=== PATIENT | male | born 1975 | race Caucasian/White ===

== ENCOUNTER 2017-08-21 19:09 | Observation (INO) | payer OTHER ==
[2017-08-21] MEDS ORDERED: Dexamethasone 4 MG/ML 5 ML MDV IV ONE ×2 (20:05→20:34)
[2017-08-21] MEDS ORDERED: HYDROmorphone 0.5 MG/0.5 ML SYRINGE IVPUSH ONE ×2 (20:05→22:50)
--- NOTE | 2017-08-21 20:11 | EDM.PDOC ---
ED HPI GENERAL MEDICAL PROBLEM - General Chief Complaint: Back Pain or Injury Stated Complaint: [facility] Time Seen by Provider: 08/21/17 20:04 Source of Information: Reports: Patient History Limitations: Reports: No Limitations - History of Present Illness INITIAL COMMENTS - FREE TEXT/NARRATIVE: 42-year-old male presents to the ED by ambulance from [facility] employed in the [employer]. He is a class a truck driver. He states that 2 days ago he went to step out of his truck and missed the handle. This caused him to fall directly onto the ground primarily onto his right side. There was a severe twisting injury en route to the ground. He states he did get up right away and did have a minor sore back for the next day or so but this morning he was unable to get out of bed due to severe pain in his right lower back. Muscle spasms are so intense that he can't even roll over. Ambulance was sumoned to bring him to the hospital as he could not get up to void or to feed himself. He essentially has been in bed all day. Not been able to get up to get food or to the bathroom. He did work yesterday driving truck. Since he's had some occasional mild back pains which are usually cured by chiropractor manipulation but nothing permanent. At present his pain is in his right flank area L1-L2 and T12 area. No radiculopathy down his leg. He denies hitting his head or losing consciousness. Denies any other injuries. He did receive Versed 2 mg en route to [facility] as well as fentanyl 50 g IV by the paramedics from injury ambulance Onset: Sudden Onset Date: 08/19/17 (Fell on the morning of August 19.) Duration: Day(s): (2 days ago), Getting Worse Location: Reports: Back (Severe right-sided low back pain.) Quality: Reports: Ache, Burning, Other Severity: Severe (Severe muscle spasms with any movement of his body right lower back) Improves with: Reports: None Worsens with: Reports: Movement Context: Reports: Trauma ([facility] misstepped getting out of his truck and then missed a grab bar. This resulted in a fall to the ground. Did not knock the wind out of him. ). Denies: Activity, Exercise, Lifting, Sick Contact Associated Symptoms: Denies: No Other Symptoms, Confusion, Chest Pain, Cough, cough w sputum, Diaphoresis, Fever/Chills, Headaches, Loss of Appetite, Malaise , Nausea/Vomiting, Rash, Seizure, Shortness of Breath, Syncope Treatments [employer]LE [employer]ER: Reports: Other (see below) Other Treatments S[employer]LE TRUER: versed and fentanyl Back Pain Score (Numeric/FACES): 10 - Related Data Allergies Allergy/AdvReac Type Severity Reaction Status Date / Time No Known Allergies Allergy Verified 08/21/17 19:13 Home Meds: Home Meds . [No Known Home Meds] 08/21/17 [History] Past Medical History - Past Health History Medical/Surgical History: Denies Medical/Surgical History Social & Family History - Tobacco Use Smoking Status *Q: Never Smoker - Caffeine Use Caffeine Use: Reports: Coffee - Recreational Drug Use Recreational Drug Use: No - Living Situation & Occupation Occupation: Employed ED ROS GENERAL - Review of Systems Review Of Systems: See Below Constitutional: Denies: Fever, Chills, Malaise, Weakness, Fatigue, Diaphoresis, Decreased Appetite, Weight Loss HEENT: Reports: No Symptoms Respiratory: Reports: No Symptoms Cardiovascular: Reports: No Symptoms Endocrine: Reports: No Symptoms GI/Abdominal: Reports: No Symptoms : Reports: No Symptoms Musculoskeletal: Reports: Back Pain, Muscle Pain, Muscle Stiffness, Other ( Severe muscle spasms upon any attempt to move on the right). Denies: Hand Pain (Severe right low back pain to the point that he is completely incapacitated.), Leg Pain, Foot Pain, Joint Pain, Joint Swelling Skin: Reports: No Symptoms ( mid lower back) Neurological: Reports: No Symptoms, Other Psychiatric: Reports: No Symptoms (No radiculopathy) Hematologic/Lymphatic: Reports: No Symptoms Immunologic: Reports: No Symptoms ED EXAM,LOWER BACK PAIN/INJURY - Physical Exam Exam: See Below Exam Limited By: No Limitations General Appearance: WD/WN, No Apparent Distress Respiratory/Chest: No Respiratory Distress, Lungs Clear, Normal Breath Sounds, No Accessory Muscle Use Cardiovascular: Normal Peripheral Pulses, Regular Rate, Rhythm, No Edema, No Gallop, No Murmur GI/Abdominal: Normal Bowel Sounds, Soft, Non-Tender, No Organomegaly, No Abnormal Bruit, No Mass, Pelvis Stable Back Exam: Other (Unable to examine as the patient is lying prone. He can't rollover even to the left side to allow appropriate examination of his back.) Extremities: Normal Inspection, Normal Range of Motion, Non-Tender, No Pedal Edema Neurological: Alert, Normal Mood/Affect, Normal Dorsiflexion, CN II-XII Intact, No Motor/Sensory Deficits, Oriented x 3. No: Normal Gait Skin Exam: Warm, Dry, Intact, Normal Color, No Rash Course - Vital Signs Last Recorded V/S: Last Vital Signs Temp 37.2 C 08/21/17 19:10 Pulse 85 08/21/17 19:10 Resp 16 08/21/17 19:10 BP 134/85 08/21/17 19:10 Pulse Ox 100 08/21/17 19:10 - Orders/Labs/Meds Orders: Active Orders 24 hr Category Date Time Status Lumbar Spine wo Cont [CT] Stat Exams 08/21/17 20:07 Taken Dextrose 5%-0.9% NaCl [Dextrose 5%-Normal Saline] 1,000 Med 08/21/17 20:15 Active ml IV ASDIRECTED Ketorolac [Toradol] Med 08/21/17 20:15 Active 30 mg IVPUSH ONETIME Medication Orders Dextrose/Sodium Chloride (Dextrose 5%-Normal Saline) 1,000 mls @ 500 mls/hr IV ASDIRECTED KAL Last Admin: 08/21/17 20:35 Dose: 500 mls/hr Ketorolac Tromethamine (Toradol) 30 mg IVPUSH ONETIME KAL Last Admin: 08/21/17 20:22 Dose: 30 mg Labs: Laboratory Tests 08/21/17 08/21/17 Range/Units 20:30 20:30 WBC 9.22 H (4.23-9.07) K/mm3 RBC 5.29 (4.63-6.08) M/mm3 Hgb 16.4 (13.7-17.5) gm/L Hct 48.2 (40.1-51.0) % MCV 91.1 (79.0-92.2) fl MCH 31.0 (25.7-32.2) pg MCHC 34.0 (32.2-35.5) g/dl RDW Std Deviation 44.1 H (35.1-43.9) fL Plt Count 176 (163-337) K/mm3 MPV 10.4 (9.4-12.3) fl Neutrophils % (Manual) 77 H (40-60) % Band Neutrophils % 0 (0-10) % Lymphocytes % (Manual) 21 (20-40) % Atypical Lymphs % 0 % Monocytes % (Manual) 1 L (2-10) % Eosinophils % (Manual) 1 (0.8-7.0) % Basophils % (Manual) 0 L (0.2-1.2) Platelet Estimate Adequate Plt Morphology Comment Normal RBC Morph Comment Normal Sodium 140 (136-145) mEq/L Potassium 4.2 (3.5-5.1) mEq/L Chloride 107 (98-107) mEq/L Carbon Dioxide 26 (21-32) mEq/L Anion Gap 11.2 (5-15) BUN 16 (7-18) mg/dL Creatinine 1.2 (0.7-1.3) mg/dL Est Cr Clr Drug Dosing 89.81 mL/min Estimated GFR (MDRD) > 60 (>60) mL/min BUN/Creatinine Ratio 13.3 L (14-18) Glucose 100 (74-106) mg/dL Calcium 8.4 L (8.5-10.1) mg/dL Total Bilirubin 0.6 (0.2-1.0) mg/dL AST 30 (15-37) U/L ALT 36 (16-63) U/L Alkaline Phosphatase 64 (46-116) U/L Creatine Kinase 1301 H (39-308) U/L C-Reactive Protein 0.6 (<1.0) mg/dL Total Protein 7.6 (6.4-8.2) g/dl Albumin 3.7 (3.4-5.0) g/dl Globulin 3.9 gm/dL Albumin/Globulin Ratio 1.0 (1-2) Meds: Medications Generic Name Dose Route Start Last Admin Trade Name Freq PRN Reason Stop Dose Admin Dextrose/Sodium Chloride 1,000 mls @ 500 mls/hr 08/21/17 20:15 08/21/17 20:35 Dextrose 5%-Normal Saline IV 500 mls/hr ASDIRECTED KAL Administration Ketorolac Tromethamine 30 mg 08/21/17 20:15 08/21/17 20:22 Toradol IVPUSH 30 mg ONETIME KAL Administration Discontinued Medications Generic Name Dose Route Start Last Admin Trade Name Freq PRN Reason Stop Dose Admin Dexamethasone 10 mg 08/21/17 20:05 Dexamethasone IV 08/21/17 20:06 ONETIME ONE Dexamethasone Confirm 08/21/17 20:17 Dexamethasone Administered 08/21/17 20:18 Dose 10 mg .ROUTE .STK-MED ONE Dexamethasone 10 mg 08/21/17 20:34 Dexamethasone IV 08/21/17 20:35 ONETIME ONE Dexamethasone 10 mg 08/21/17 20:35 08/21/17 20:37 Dexamethasone IVPUSH 08/21/17 20:36 10 mg ONETIME STA Administration Diazepam 5 mg 08/21/17 20:06 08/21/17 20:30 Valium IVPUSH 08/21/17 20:07 5 mg ONETIME ONE Administration Hydromorphone HCl 1 mg 08/21/17 20:05 08/21/17 20:23 Dilaudid IVPUSH 08/21/17 20:06 1 mg ONETIME ONE Administration Hydromorphone HCl 1 mg 08/21/17 22:50 08/21/17 22:54 Dilaudid IVPUSH 08/21/17 22:51 1 mg ONETIME ONE Administration - Radiology Interpretation Free Text/Narrative:: 42-year-old male presents the ED by ambulance from [facility] he is employed. He presents with severe right lower back pain which is described as severe muscle spasms upon any movement. The muscle spasms are incapacitating. She went to the point that he states came in rollover even with help to have his back examined. He has an atrial today and he hasn't been able to get up to the bathroom either. States he fell out of his truck 2 days ago missed a step getting out of the truck. He missed the grab bar and fell to the ground landing hard he believes on his right side. 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 This morning however he could get out of bed. Found his symptoms somewhat exaggerated and have some concerns about potential narcotic abuser. Toward drug- seeking behavior. However upon checking the drug database is in [facility] in [place] there is no record of him having any medications. Plan he will receive IV D5 normal saline at 500 mils per hour. Given Dilaudid 1 mg IV with Toradol 30 mg IV and Valium 55 mg IV for muscle spasm relief. We'll have CT of his lumbar spine carried out. - Re-Assessments/Exams Free Text/Narrative Re-Assessment/Exam: 08/21/17 21:09 CT of the lumbar spine has been completed. Examination of L1-2, L2-3, and L3-4, are within normal limits. Examination of L4-5 demonstrates a diffuse annular bulge effacing the ventral subarachnoid space which in combination with mild thickened ligamentum flavum is resulting in a mild central spinal stenosis. Examination of L5-S1 demonstrates a prominent intervertebral osteophyte demonstrated on the right posterior lateral aspect of the disc space asymmetrically effacing the ventral subarachnoid space and indenting and on and posteriorly displacing the right S1 nerve root as it exits from the thecal sac narrowing of the inferior aspect of the right neural foramina demonstrated as well. A curvilinear lucency demonstrated between the osteophyte and the vertebral body may indicate a posttraumatic fracture as the osteophyte appears to be detached from the parent bone. Normal alignment of the L-spine is appreciated. 08/21/17 22:00 Labs reveal a total white count of 9.22. Differential 77% neutrophils no bands reported. Hemoglobin is 16.4. Hematocrit is 40.2 indicating some degree of hemoconcentration. Platelets are normal at 176,000. Sodium was 140 with a potassium of 4.2. Portable 07 with a bicarbonate 26. And a gap is 11.2. BUN is 16 with a creatinine of 1.2. GFR is greater than 60. Glucose is 100. Calcium is 8.4. Liver function is normal. Creatine kinase is elevated at 1301 . I have spoken to Dr. Rhoades about admission to the hospital. She was checking out the bed mobility. Patient essentially is incapacitated at this time due to his back pain. It up he can't get himself any food and he can't get to the bathroom. He is hungry we'll try and see if we can get him a sandwich and some Gatorade. He will have to strain set up a bit of course to eat. 08/21/17 22:51 Current pain is 5-6 out of 10. Will repeat Dilaudid 1 mg IV for pain relief. 08/21/17 23:48 apparently there is a bed available for him and apparently nurses have arranged for him to be transferred to the floor shortly. Departure - Departure Time of Disposition: 23:49 Disposition: Refer to Observation Condition: Fair Clinical Impression: Degenerative joint disease (DJD) of lumbar spine Acute lumbar back pain Qualifiers: Back pain laterality: right Sciatica presence: without sciatica Qualified Code( s): M54.5 - Low back pain - Discharge Information - My Orders Last 24 Hours: My Active Orders 08/21/17 20:07 Lumbar Spine wo Cont [CT] Stat 08/21/17 20:15 Dextrose 5%-0.9% NaCl [Dextrose 5%-Normal Saline] 1,000 ml IV ASDIRECTED Ketorolac [Toradol] 30 mg IVPUSH ONETIME - Assessment/Plan Last 24 Hours: My Active Orders 08/21/17 20:07 Lumbar Spine wo Cont [CT] Stat 08/21/17 20:15 Dextrose 5%-0.9% NaCl [Dextrose 5%-Normal Saline] 1,000 ml IV ASDIRECTED Ketorolac [Toradol] 30 mg IVPUSH ONETIME
[2017-08-21] MEDS ORDERED: Dextrose 5%-0.9% NaCl 1,000 ML IV SCH (20:15)
[2017-08-21] MEDS ORDERED: Ketorolac 30 MG/ML SDV IVPUSH SCH (20:15)
[2017-08-21] MEDS ORDERED: Dexamethasone 10 MG/ML SDV ONE (20:17)
[2017-08-21] MEDS ORDERED: Dexamethasone 10 MG/ML SDV IVPUSH STA (20:35)
[2017-08-22] MEDS: HYDROmorphone 0.5 MG/0.5 ML SYRINGE IVPUSH PRN ×2 (01:04→09:05)
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
[2017-08-22] MEDS ORDERED: Cyclobenzaprine 10 MG Tab PO PRN (09:21)
[2017-08-22] MEDS: Ketorolac 30 MG/ML SDV IVPUSH SCH ×2 (10:18→15:40)
[2017-08-22] MEDS: methylPREDNISolone Sodium Succinate 125 MG/2 ML SDV IVPUSH SCH ×2 (10:18→15:40)
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
[2017-08-22] MEDS ORDERED: Gabapentin 300 MG Cap PO SCH ×2 (13:45→21:00)
[2017-08-22] MEDS ORDERED: Lidocaine 5% 700 MG Patch TOP SCH (14:00)
[2017-08-22] MEDS ORDERED: Ibuprofen 800 MG Tab PO PRN (18:33)
[2017-08-22] MEDS ORDERED: Acetaminophen/HYDROcodone 325-5 MG Tab PO PRN (18:43)
--- NOTE | 2017-08-22 19:27 | PCM.DCSUM1 ---
Discharge Summary - Hospital Course Free Text/Narrative:: 42 year old male with severe muscle spasms and a documented protruding disc L5- S1 on MRI. This displaces and compresses the right S1 nerve root as well as S2. The patient had improvement of his back discomfort. And has been discharged to home with anticipated follow up with a PCP, and possibly ortho. However he expressed a desire to see ortho in his home [facility]. If he decides to follow up in [facility], he will be available for an appointment on Saturday, August 26, 2017. Diagnosis Severe muscle spasms Intractible pain after falling from truck L5-S1 protruding/herniated disc with involvement of right S1/S2 nerve HPI Initial Comments: 42 year old male complains of back pain, s/p recent fall from his truck. Denied LOC, he has had worsening right sided back pain. He has given a least 2 separate accounts of the incidence of the fall. Nevertheless at this time he is experiencing sharp pain with movement. The patient received several doses of Dextamethasone, and also Valium without significant relief. He has been admitted to obs for pain management. A CT of the lumbar spine was within normal limits except L4-L5 documents a diffuse annular bulge with effacement of the ventral subarachnoid space. Thus mild central spinal stenosis. See complete report, there also may be a post traumatic fracture. 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 Status: Acute Current Visit: Yes (2) Acute lumbar back pain SNOMED Code(s): 974342959 ICD Code: M54.5 - LOW BACK PAIN Status: Acute Current Visit: Yes Qualifiers: Back pain laterality: right Sciatica presence: without sciatica Qualified Code(s): M54.5 - Low back pain (3) Degenerative joint disease (DJD) of lumbar spine Status: Acute Current Visit: Yes - Patient Summary/Data Consults: Consultations 08/22/17 01:12 Consult to Physical Therapy [PT Evaluation and Treatment] [CONS] Routine - Patient Instructions Diet: Usual Diet as Tolerated Activity: No Strenuous Activities, Rest and Relax Today Driving: Do Not Drive Showering/Bathing: May Shower Notify Provider of: Fever, Increased Pain, Nausea and/or Vomiting - Discharge Plan Prescriptions/Med Rec: Acetaminophen/HYDROcodone [[place] 325-5 MG] 1 tab PO Q12H PRN #7 tablet PRN Reason: Pain (Moderate 4-6) Cyclobenzaprine [Flexeril] 10 mg PO TID PRN #21 tablet PRN Reason: muscle spasms Gabapentin [Neurontin] 300 mg PO TID PRN #30 capsule PRN Reason: Pain Ibuprofen [Motrin] 800 mg PO Q6H PRN #30 tablet PRN Reason: Pain (Severe 7-10) Lidocaine 5% [Lidoderm 5%] 700 mg TOP DAILY@1400 #14 patch Home Medications: Home Meds Acetaminophen/HYDROcodone [[place] 325-5 MG] 1 tab PO Q12H PRN #7 tablet 08/22/17 [Rx] Anastrozole [Arimidex] 1 mg PO WEEKLY 08/22/17 [History] Cyclobenzaprine [Flexeril] 10 mg PO TID PRN #21 tablet 08/22/17 [Rx] Gabapentin [Neurontin] 300 mg PO TID PRN #30 capsule 08/22/17 [Rx] Ibuprofen [Motrin] 800 mg PO Q6H PRN #30 tablet 08/22/17 [Rx] Lidocaine 5% [Lidoderm 5%] 700 mg TOP DAILY@1400 #14 patch 08/22/17 [Rx] Testosterone Cypionate 100 mg IM ASDIRECTED 08/22/17 [History] Forms: ED Department Discharge Referrals: PCP,Not In Area [Primary Care Provider] - - Discharge Summary/Plan Comment DC Time >30 min.: No Discharge Summary/Plan Comment: Impression: Acute back pain, lumbar region s/p fall from truck Severe muscle spasms Elevated CPK post trauma Hypotesteronemia Plan: IVF Pain mgt MRI of lumbar spine Ortho eval as needed. Obs with telemetry DVT/GI prophylaxis - General Info Date of Service: 08/22/17 Functional Status: Reports: Pain Controlled, Tolerating Diet, Ambulating, Urinating - Review of Systems General: Reports: No Symptoms HEENT: Reports: No Symptoms Pulmonary: Reports: No Symptoms Cardiovascular: Reports: No Symptoms Gastrointestinal: Reports: No Symptoms Genitourinary: Reports: No Symptoms Musculoskeletal: Reports: Back Pain Skin: Reports: No Symptoms Neurological: Reports: No Symptoms Psychiatric: Reports: No Symptoms - Patient Data Vitals - Most Recent: Last Vital Signs Temp 36.8 C 08/22/17 14:07 Pulse 65 08/22/17 14:07 Resp 16 08/22/17 13:26 BP 132/79 08/22/17 14:07 Pulse Ox 97 08/22/17 14:07 Weight - Most Recent: 97.522 kg I&O - Last 24 hours: Intake & Output 08/22/17 08/22/17 08/22/17 06:59 14:59 22:59 Intake Total 900 240 200 Output Total 600 800 Balance 300 240 -600 Lab Results - Last 24 hrs: Laboratory Results - last 24 hr 08/21/17 08/21/17 08/22/17 Range/Units 20:30 20:30 01:20 WBC 9.22 H (4.23-9.07) K/mm3 RBC 5.29 (4.63-6.08) M/mm3 Hgb 16.4 (13.7-17.5) gm/L Hct 48.2 (40.1-51.0) % MCV 91.1 (79.0-92.2) fl MCH 31.0 (25.7-32.2) pg MCHC 34.0 (32.2-35.5) g/dl RDW Std Deviation 44.1 H (35.1-43.9) fL Plt Count 176 (163-337) K/mm3 MPV 10.4 (9.4-12.3) fl Neutrophils % (Manual) 77 H (40-60) % Band Neutrophils % 0 (0-10) % Lymphocytes % (Manual) 21 (20-40) % Atypical Lymphs % 0 % Monocytes % (Manual) 1 L (2-10) % Eosinophils % (Manual) 1 (0.8-7.0) % Basophils % (Manual) 0 L (0.2-1.2) Platelet Estimate Adequate Plt Morphology Comment Normal RBC Morph Comment Normal Sodium 140 (136-145) mEq/L Potassium 4.2 (3.5-5.1) mEq/L Chloride 107 (98-107) mEq/L Carbon Dioxide 26 (21-32) mEq/L Anion Gap 11.2 (5-15) BUN 16 (7-18) mg/dL Creatinine 1.2 (0.7-1.3) mg/dL Est Cr Clr Drug Dosing 89.81 mL/min Estimated GFR (MDRD) > 60 (>60) mL/min BUN/Creatinine Ratio 13.3 L (14-18) Glucose 100 (74-106) mg/dL Calcium 8.4 L (8.5-10.1) mg/dL Total Bilirubin 0.6 (0.2-1.0) mg/dL AST 30 (15-37) U/L ALT 36 (16-63) U/L Alkaline Phosphatase 64 (46-116) U/L Creatine Kinase 1301 H (39-308) U/L C-Reactive Protein 0.6 (<1.0) mg/dL Total Protein 7.6 (6.4-8.2) g/dl Albumin 3.7 (3.4-5.0) g/dl Globulin 3.9 gm/dL Albumin/Globulin Ratio 1.0 (1-2) TSH 3rd Generation (0.358-3.74) uIU/mL Urine Opiates Screen (NEGATIVE) Ur Buprenorphine Scrn (NEGATIVE) Ur Oxycodone Screen (NEGATIVE) Urine Methadone Screen (NEGATIVE) Ur Propoxyphene Screen (NEGATIVE) Ur Barbiturates Screen (NEGATIVE) Ur Tricyclics Screen (NEGATIVE) Ur Phencyclidine Scrn (NEGATIVE) Ur Amphetamine Screen (NEGATIVE) U Methamphetamines Scrn (NEGATIVE) U Benzodiazepines Scrn (NEGATIVE) U Cocaine Metab Screen (NEGATIVE) U Marijuana (THC) Screen (NEGATIVE) MRSA (PCR) Negative 08/22/17 08/22/17 Range/Units 10:28 14:23 WBC (4.23-9.07) K/mm3 RBC (4.63-6.08) M/mm3 Hgb (13.7-17.5) gm/L Hct (40.1-51.0) % MCV (79.0-92.2) fl MCH (25.7-32.2) pg MCHC (32.2-35.5) g/dl RDW Std Deviation (35.1-43.9) fL Plt Count (163-337) K/mm3 MPV (9.4-12.3) fl Neutrophils % (Manual) (40-60) % Band Neutrophils % (0-10) % Lymphocytes % (Manual) (20-40) % Atypical Lymphs % % Monocytes % (Manual) (2-10) % Eosinophils % (Manual) (0.8-7.0) % Basophils % (Manual) (0.2-1.2) Platelet Estimate Plt Morphology Comment RBC Morph Comment Sodium (136-145) mEq/L Potassium (3.5-5.1) mEq/L Chloride (98-107) mEq/L Carbon Dioxide (21-32) mEq/L Anion Gap (5-15) BUN (7-18) mg/dL Creatinine (0.7-1.3) mg/dL Est Cr Clr Drug Dosing mL/min Estimated GFR (MDRD) (>60) mL/min BUN/Creatinine Ratio (14-18) Glucose (74-106) mg/dL Calcium (8.5-10.1) mg/dL Total Bilirubin (0.2-1.0) mg/dL AST (15-37) U/L ALT (16-63) U/L Alkaline Phosphatase (46-116) U/L Creatine Kinase (39-308) U/L C-Reactive Protein (<1.0) mg/dL Total Protein (6.4-8.2) g/dl Albumin (3.4-5.0) g/dl Globulin gm/dL Albumin/Globulin Ratio (1-2) TSH 3rd Generation 0.620 (0.358-3.74) uIU/mL Urine Opiates Screen Presumptive positive H (NEGATIVE) Ur Buprenorphine Scrn Negative (NEGATIVE) Ur Oxycodone Screen Negative (NEGATIVE) Urine Methadone Screen Negative (NEGATIVE) Ur Propoxyphene Screen Negative (NEGATIVE) Ur Barbiturates Screen Negative (NEGATIVE) Ur Tricyclics Screen Negative (NEGATIVE) Ur Phencyclidine Scrn Negative (NEGATIVE) Ur Amphetamine Screen Negative (NEGATIVE) U Methamphetamines Scrn Negative (NEGATIVE) U Benzodiazepines Scrn Presumptive positive H (NEGATIVE) U Cocaine Metab Screen Negative (NEGATIVE) U Marijuana (THC) Screen Negative (NEGATIVE) MRSA (PCR) Med Orders - Current: Current Medications Hydrocodone Bitart/Acetaminophen ([place] 325-5 Mg) 1 tab PO Q12H PRN PRN Reason: Pain (moderate 4-6) Cyclobenzaprine HCl (Flexeril) 10 mg PO TID PRN PRN Reason: muscle spasms Last Admin: 08/22/17 09:27 Dose: 10 mg Gabapentin (Neurontin) 300 mg PO TID [facility] Ibuprofen (Motrin) 800 mg PO Q6H PRN PRN Reason: Pain (severe 7-10) Ketorolac Tromethamine (Toradol) 30 mg IVPUSH Q6H [facility] Stop: 08/24/17 04:01 Last Admin: 08/22/17 15:40 Dose: 30 mg Lidocaine (Lidoderm 5%) 700 mg TOP DAILY@1400 [facility] Last Admin: 08/22/17 14:59 Dose: 700 mg Methylprednisolone Sodium Succinate (Solu-Medrol) 125 mg IVPUSH Q6H [facility] Last Admin: 08/22/17 15:40 Dose: 125 mg Miscellaneous Information (Remove Patch) 0 ea TRDERM DAILY@0200 [facility] Discontinued Medications Dexamethasone (Dexamethasone) 10 mg IV ONETIME ONE Stop: 08/21/17 20:06 Last Admin: 08/22/17 09:10 Dose: Not Given Dexamethasone (Dexamethasone) Confirm Administered Dose 10 mg .ROUTE .STK-MED ONE Stop: 08/21/17 20:18 Last Admin: 08/22/17 09:11 Dose: Not Given Dexamethasone (Dexamethasone) 10 mg IV ONETIME ONE Stop: 08/21/17 20:35 Last Admin: 08/22/17 09:11 Dose: Not Given Dexamethasone (Dexamethasone) 10 mg IVPUSH ONETIME STA Stop: 08/21/17 20:36 Last Admin: 08/21/17 20:37 Dose: 10 mg Diazepam (Valium) 5 mg IVPUSH ONETIME ONE Stop: 08/21/17 20:07 Last Admin: 08/21/17 20:30 Dose: 5 mg Diazepam (Valium) 5 mg IVPUSH Q8H PRN PRN Reason: Muscle Spasm Last Admin: 08/22/17 03:57 Dose: 5 mg Gabapentin (Neurontin) 300 mg PO DAILY [facility] Last Admin: 08/22/17 14:55 Dose: 300 mg Hydromorphone HCl (Dilaudid) 1 mg IVPUSH ONETIME ONE Stop: 08/21/17 20:06 Last Admin: 08/21/17 20:23 Dose: 1 mg Hydromorphone HCl (Dilaudid) 1 mg IVPUSH ONETIME ONE Stop: 08/21/17 22:51 Last Admin: 08/21/17 22:54 Dose: 1 mg Hydromorphone HCl (Dilaudid) 1 mg IVPUSH Q2HR PRN PRN Reason: Pain (severe 7-10) Last Admin: 08/22/17 09:05 Dose: 1 mg Dextrose/Sodium Chloride (Dextrose 5%-Normal Saline) 1,000 mls @ 500 mls/hr IV ASDIRECTED [facility] Last Admin: 08/21/17 20:35 Dose: 500 mls/hr Ketorolac Tromethamine (Toradol) 30 mg IVPUSH ONETIME [facility] Last Admin: 08/21/17 20:22 Dose: 30 mg - Exam Quality Assessment: Reports: DVT Prophylaxis General: Reports: Alert, Oriented, Cooperative, No Acute Distress HEENT: Reports: Pupils Equal, Pupils Reactive, EOMI Neck: Reports: Trachea Midline, No JVD Lungs: Reports: Normal Respiratory Effort Cardiovascular: Reports: Regular Rate, Regular Rhythm GI/Abdominal Exam: Normal Bowel Sounds, Soft, Non-Tender, No Organomegaly, No Distention (Male) Exam: Deferred Rectal (Males) Exam: Deferred Back Exam: Reports: Normal Inspection, Decreased Range of Motion, Muscle Spasm Extremities: Normal Inspection, Non-Tender, Normal Capillary Refill Skin: Reports: Warm Neurological: Reports: No New Focal Deficit, Normal Speech Psy/Mental Status: Reports: Alert, Normal Affect, Normal Mood
--- NOTE | 2017-08-25 08:20 | CT ---
CT lumbar spine Technique: Multiple axial sections through the lumbar spine were obtained from the top of T12 inferiorly through the L5-S1 disc. Reconstructed coronal and sagittal images were reviewed. Findings: T11-T12: Posterior disc is preserved. Minimal degenerative apophyseal change is seen. Minimal circumferential disc bulge is seen. Posterior disc maintains a concave margin. T12-L1: Posterior disc maintains a concave margin. No central canal stenosis or neural foraminal stenosis is seen. Mild degenerative apophyseal change is seen. L1-L2: Posterior disc maintains a concave margin. Minimal degenerative apophyseal change is seen. No central canal stenosis or neural foraminal stenosis is seen. L2-L3: Posterior disc maintains a concave margin. No central canal stenosis or neural foraminal stenosis is seen. L3-L4: Posterior disc maintains a concave margin. No central canal stenosis or neural foraminal stenosis is seen. L4-L5: Mild circumferential disc bulge is seen. This effaces the anterior thecal sac. No clinically significant central canal stenosis is seen. Disc bulging is seen into both inferior neural foramina. Nerve roots appear to exit without definite compromise. Minimal degenerative apophyseal change is seen. L5-S1: Mild posterior disc space narrowing is seen. Calcification is noted within the posterior annulus. This is noted to the right of midline. Neural foramina are patent where the nerve roots exit. No central canal stenosis is seen. Posterior disc bulge slightly displaces the right S1 nerve root posteriorly. No definite acute abnormality is felt to be present. Impression: 1. Disc space narrowing at L5-S1 with posterolateral disc bulge to the right of midline with adjacent calcification within the posterior annulus. This pushes the right S1 nerve root posteriorly. 2. Other minimal degenerative change as noted above. I believe that there is no acute abnormality. Diagnostic code #3 I agree with preliminary report from [facility], although I do not believe that there is any acute fracture present as questioned on the preliminary report finalized at 08/21/17, 10:15 PM Central Time
--- NOTE | 2017-08-25 08:20 | MR ---
MRI lumbar spine Technique: T2-weighted axial images were obtained from above the T11-T12 disc inferiorly to the L5-S1 disc. T1-weighted images were obtained from above the L1-L2 disc inferiorly through the L5-S1 disc. T1, T2 and fat-suppressed inversion recovery sagittal images were obtained. Comparison: Prior CT lumbar spine exam performed on 08/21/17. Findings: T11-12: Disc space narrowing is noted. Small disc herniation is seen posterolaterally to the right of midline. No central canal stenosis or neural foraminal stenosis is seen. Posterior disc maintains a concave margin. Slight circumferential disc bulge is otherwise seen. T12-L1 through L3-L4: Posterior discs are preserved. No central canal stenosis or neural foraminal stenosis is seen. L4-L5: Mild circumferential disc bulge is seen. Slight increased signal within the posterior annulus is seen compatible with small annular tear. No central canal stenosis is seen. Neural foramina are patent where the nerve roots exit. Mild degenerative dehydration change is noted within this disc. L5-S1: Posterior disc space narrowing is seen. Disc herniation is seen posterolaterally to the right of midline. This does not appear to compromise the right S1 nerve root on this exam with normal fat plane being seen around the right S1 nerve root. Disc herniation slightly effaces the right anterior thecal sac but causes no central canal stenosis. Neural foramina are patent where the nerve roots exit. Degenerative dehydration change is noted within the disc. Conus medullaris and cauda equina shows no abnormal signal or mass. No bone marrow edema is identified. Impression: 1. Disc herniation posterolaterally at L5-S1 slightly effacing the anterior right thecal sac but causing no displacement of the right S1 nerve root as suggested on recent CT study. 2. Very small disc herniation to the right of midline at T11-T12. 3. Other degenerative change as noted above. No acute bone marrow edema is identified. Diagnostic code #3 I agree with preliminary report from [facility], finalized at 08/22/17, 3:02 PM Central Time
== END 2017-08-22 19:52 | disposition home or self-care (01) ==
LOC: JD.ED 19:09 → JD.MS 23:41
PROVIDERS: ADMIT Internal Medicine Cardiovascular Disease; ATTEND Internal Medicine Cardiovascular Disease
DX: M51.27 Other intervertebral disc displacement, lumbosacral region (principal); V89.9XXA Person injured in unspecified vehicle accident, initial encounter; E29.1 Testicular hypofunction; M48.061 Spinal stenosis, lumbar region without neurogenic claudication
CPT/HCPCS: 36415; 72131; 72148; 80053; 80306; 82550; 84443; 85007; 85027; 86140; 87641; 96361; 96374; 96375; 96376; 97116; 97140; 97161; 99285; A9270; J1100; J1170; J1885; J2930; J3360; J7042; 97162-GP